=== PATIENT | male | born 1995 | race Caucasian/White ===

== ENCOUNTER 2018-05-22 14:28 | Emergency (ER) | payer BC, OTHER ==
[~2018-05-22] VITALS: Ht 185.4 cm; Wt 86.2 kg
[2018-05-22] MEDS ORDERED: NYAMYC15 GM TOP (15:19)
[2018-05-22] MEDS ORDERED: KETOCONAZOLE15 GM TOP (15:19)
[2018-05-22] MEDS ORDERED: KEFLEX500 M1 PO (15:19)
[2018-05-22 15:54] VITALS: BP 153/87
== END 2018-05-22 14:45 | disposition home or self-care (01) ==
LOC: ER 14:28
DX: B35.4 Tinea corporis (principal); L03.116 Cellulitis of left lower limb